=== PATIENT | female | born 1980 | race Two or more races ===

== ENCOUNTER 2025-07-20 02:07 | Emergency (ER) | payer MEDICAID, OTHER ==
[~2025-07-20] VITALS: Ht 160 cm; Wt 105.2 kg
--- NOTE | 2025-07-20 02:28 | ED.PDOC ---
History of Present Illness HPI Comments 45 Year old female came to ER for high blood pressure. Patient does have history of hypertension, with good compliance to her medications. States for the past few hours she has been having diffuse headaches with nausea. Noted that her blood pressure was elevated at home. Upon arrival of the ER blood pressure was 172/99 mm Hg. She denies any chest pains or shortness a breath Chief Complaint: High Blood Pressure Time Seen by MD: 02:28 Reviewed Notes: Nurses Notes Allergies: Coded Allergies: No Known Drug Allergy (Verified Allergy, Unknown, 07/20/25) Home Meds Active Scripts Metoprolol Tartrate (Metoprolol Tartrate) 25 Mg Tab, 1 TAB PO BID for 90 Days, #180 TAB 3 Refills Prov:ROSA BARRIOS MD 07/20/25 Information Source: Patient Mode of Arrival: Ambulatory Severity: Moderate Timing: Hours Duration: Since onset Past Medical History PAST MEDICAL HISTORY: HTN Surgical History: Denies all surgeries PROGRAM SPECIALIST History: Denies all PROGRAM SPECIALIST Hx Family History Family History: Reviewed,noncontributory to illness Social History Smoker: Non-Smoker Alcohol: Denies ETOH Use Drugs: Denies Drug Use Lives In: Home Constitutional: denies: chills, diaphoresis, fatigue, fever, malaise, sweats, weakness, others EENTM: denies: blurred vision, double vision, ear bleeding, ear discharge, ear drainage, ear pain, ear ringing, eye pain, eye redness, hearing loss, mouth pain, mouth swelling, nasal discharge, nose bleeding, nose congestion, nose pain, photophobia, tearing, throat pain, throat swelling, voice changes, others Respiratory: denies: cough, hemoptysis, orthopnea, SOB at rest, shortness of breath, SOB with excertion, stridor, wheezing, others Cardiovascular: denies: chest pain, dizzy spells, diaphoresis, Dyspnea on exertion, edema, irregular heart beat, left arm pain, lightheadedness, palpitations, PND, syncope, others Gastrointestinal: reports: nausea; denies: abdomen distended, abdominal pain, blood streaked bowels, constipated, diarrhea, dysphagia, difficulty swallowing, hematemesis, melena, poor appetite, poor fluid intake, rectal bleeding, rectal pain, vomiting, others Genitourinary: denies: abnormal vagina bleeding, burning, dyspareunia, dysuria, flank pain, frequency, hematuria, incontinence, pain, , vagina discharge, urgency, others Neurological: reports: headache; denies: dizziness, fainting, left sided nu mbness, left sided weakness, numbness, paresthesia, pre-existing deficit, right sided numbness, right sided weakness, seizure, speech problems, tingling, tremors, weakness, others Musculoskeletal: denies: back pain, gout, joint pain, joint swelling, muscle pain, muscle stiffness, neck pain, others Integumetry: denies: bruises, change in color, change in hair/nails, dryness, laceration, lesions, lumps, rash, wounds, others Allergic/Immunocompromised: denies: Difficulty Healing, Frequent Infections, Hives, Itching, others Hematologic/Lymphatic: denies: anemia, blood clots, easy bleeding, easy bruising, swollen glands, others Endocrine: denies: excessive hunger, excessive sweating, excessive thirst, excessive urination, flushing, intolerance to cold, intolerance to heat, unexpla ined weight gain, unexplained weight loss, others Psychiatric: denies: anxiety, bipolar disorder, depression, hopeless, panic disorder, schizophrenia, sleepless, suicidal, others Physical Exam General Appearance: No Apparent Distress, Normal HEENT: Normal ENT Inspection, Pharynx Normal, TMs Normal Neck: Full Range of Motion, Non-Tender, Normal, Normal Inspection Respiratory: Chest Non-Tender, Lungs Clear, No Accessory Muscle Use, No Respiratory Distress, Normal Breath Sounds Cardiovascular: No Edema, No JVD, No Murmur, No Gallop, Normal Peripheral Pulses, Regular Rate/Rhythm Breast Exam: Deferred Gastrointestinal: No Organomegaly, Non Tender, No Pulsatile Mass, Normal Bowel Sounds, Soft Genitalia: Deferred Pelvic: Deferred Rectal: Deferred Extremities: No calf tenderness, Normal capillary refill, Normal inspection, Normal range of motion, Non-tender, No pedal edema Musculoskeletal : Apperance: Normal Neurologic: Alert, care program director II-XII nml as Tested, No Motor Deficits, Normal Affect, Normal Mood, No Sensory Deficits Cerebellar Function: Normal Reflexes: Normal Skin: Dry, Normal Color, Warm Lymphatic: No Adenopathy Was a procedure done? Was a procedure done?: No Differential Dx Considerations may include: Anemia, anxiety, hypertensive urgency, headaches X-Ray, Labs, Meds, VS Vital Signs Date Time Temp Pulse Resp B/P (MAP) Pulse Ox O2 Delivery O2 Flow Rate FiO2 07/20/25 05:19 100.4 98 20 166/89 (114) 95 100.4 07/20/25 05:15 Room Air* 0 21 07/20/25 03:45 105 159/105 07/20/25 02:47 111 187/108 07/20/25 02:39 97.6 111 18 187/108 (134) 95 97.6 07/20/25 02:12 99.3 114 18 172/99 96 99.3 Lab Test 07/20/25 05:20 07/20/25 03:28 07/20/25 02:25 Range/Units Troponin I High Sensitivity Pending < 3 L < 3 L </=34 ng/L White Blood Count 11.0 H 4.4-10.8 10^3/uL Red Blood Count 4.65 4.0-5.20 10^6/uL Hemoglobin 11.5 L 12.2-16.2 g/dL Hematocrit 34.4 L 36.0-46.0 % Mean Corpuscular Volume 73.9 L 80.0-100.0 fL Mean Corpuscular Hemoglobin 24.7 L 28.0-32.0 pg Mean Corpuscular Hemoglobin Concent 33.4 32.0-36.0 g/dL Red Cell Distribution Width 19.7 H 11.8-14.3 % Platelet Count 267 140-450 10^3/uL Mean Platelet Volume 8.5 6.9-10.8 fL Neutrophils (%) (Auto) 89.5 H 37.0-80.0 % Lymphocytes (%) (Auto) 7.4 L 10.0-50.0 % Monocytes (%) (Auto) 2.6 0.0-12.0 % Eosinophils (%) (Auto) 0.0 0.0-7.0 % Basophils (%) (Auto) 0.5 0.0-2.0 % Neutrophils # (Auto) 9.8 H 1.6-8.6 10 ^3/uL Lymphocytes # (Auto) 0.8 0.4-5.4 10 ^3/uL Monocytes # (Auto) 0.3 0-1.3 10 ^3/uL Eosinophils # (Auto) 0 0-0.8 10 ^3/uL Basophils # (Auto) 0.1 0-0.2 10 ^3/uL Nucleated Red Blood Cells 0.0 % Sodium Level 139 136-145 mmol/L Potassium Level 4.2 3.5-5.1 mmol/L Chloride Level 107 98-107 mmol/L Carbon Dioxide Level 22 20-31 mmol/L Anion Gap 10 5-15 Blood Urea Nitrogen 12 9-23 mg/dL Creatinine 0.89 0.550-1.02 mg/dL Glomerular Filtration Rate Calc 81 >90 mL/min BUN/Creatinine Ratio 13.5 10.0-20.0 Serum Glucose 124 H 74-106 mg/dL Calcium Level 8.8 8.7-10.4 mg/dL Magnesium Level 1.9 1.6-2.6 mg/dL Current Medications Medications (Trade) Dose Ordered Sig/Avery Route Start Time Stop Time Status Last Admin Metoprolol Tartrate (Lopressor Tablet) 50 mg ONCE ONCE PO 07/20/25 02:45 07/20/25 02:46 DC 07/20/25 02:47 Time of 1ST Reevaluation: 02:18 Reevaluation 1ST: Unchanged Patient Education/Counseling: Diagnosis, Treatment Family Education/Counseling: No Family Present SEPSIS Sepsis Screen Date sepsis recognized/suspect: Jul 20, 2025 Time Sepsis recognized/suspect: 214 Recent Procedure: No On Antibiotic Therapy: No Respiratory Rate >20: No Heart Rate >90: No Temp<36 C (96.8 F) or >38.3 C: No SBP <90 or MAP <65 mmHG: No New Acute Mental Status Change: No Is the patient on CPAP, BIPAP,: No Physician Orders Electrocardigram (07/20/25 02:16) Troponin-I Hs (07/20/25 05:16) Acetaminophen Tab Or Cap (Tylenol Tablet (07/20/25 05:45) Ondansetron Po (Zofran Po) (07/20/25 05:45) Vital Signs Date Time Temp Pulse Resp B/P (MAP) Pulse Ox O2 Delivery O2 Flow Rate FiO2 07/20/25 05:19 100.4 98 20 166/89 (114) 95 100.4 07/20/25 05:15 Room Air* 0 21 07/20/25 03:45 105 159/105 07/20/25 02:47 111 187/108 07/20/25 02:39 97.6 111 18 187/108 (134) 95 97.6 07/20/25 02:12 99.3 114 18 172/99 96 99.3 Laboratory Tests Test 07/20/25 02:25 White Blood Count 11.0 10^3/uL (4.4-10.8) H Medications Medications Dose Ordered Sig/Avery Route Start Time Stop Time Status Last Admin Dose Admin Metoprolol Tartrate 50 mg ONCE ONCE PO 07/20/25 02:45 07/20/25 02:46 DC 07/20/25 02:47 Departure 1 Departure Time of Disposition: 04:30 Impression: Primary Impression: Hypertension Additional Impression: Hypertensive urgency Disposition: 01 HOME / SELF CARE / HOMELESS Condition: Stable e-Prescriptions Metoprolol Tartrate (Metoprolol Tartrate) 25 Mg Tab 1 TAB PO BID for 90 Days, #180 TAB 3 Refills Prov: ROSA BARRIOS MD 07/20/25 Discharged With: Self Critical Care Note Critical Care Time?: No Stability Stability form required: No Heart Score Heart Score: Heart Score Response (Comments) Value History N/A 0 EKG N/A 0 Age N/A 0 Risk Factors N/A 0 Troponin N/A 0 Total 0 I personally scribed for ROSA BARRIOS MD ([email or web address]) on 07/20/25 at 02:28. Electronically submitted by Michael Blackwell ([email or web address]). ROSA BRARIOS MD Jul 20, 2025 02:28
[2025-07-20] MEDS ORDERED: METOPROLOL TARTRATE 25 MG TAB PO ONE (02:30)
[2025-07-20 02:40] LABS: Nucleated Red Blood Cells % 0.0 %
[2025-07-20 02:43] LABS: Hematocrit 34.4 % (36.0-46.0); Hemoglobin 11.5 g/dL (12.2-16.2); Mean Corpuscular Hemoglobin 24.7 pg (28.0-32.0); Mean Corpuscular Volume 73.9 fL (80.0-100.0)
[2025-07-20] MEDS: METOPROLOL TARTRATE 50 MG TAB PO ONE (02:47)
[2025-07-20 04:05] LABS: Anion Gap 10 (5-15); Carbon Dioxide 22 mmol/L (20-31); Potassium 4.2 mmol/L (3.5-5.1); Sodium 139 mmol/L (136-145)
[2025-07-20 04:06] LABS: Calcium 8.8 mg/dL (8.7-10.4)
[2025-07-20 04:07] LABS: Chloride 107 mmol/L (98-107)
[2025-07-20 04:11] LABS: BUN/Creatinine Ratio 13.5 (10.0-20.0); Blood Urea Nitrogen 12 mg/dL (9-23); Magnesium 1.9 mg/dL (1.6-2.6)
[2025-07-20 04:58] LABS: Glucose 124 mg/dL (74-106)
[2025-07-20] MEDS ORDERED: METO25TA5 PO (05:18)
[2025-07-20 05:19] VITALS: BP 166/89; PULSE 98; RESP 20; O2SAT 95
[2025-07-20 05:40] VITALS: TEMP 100.4
[2025-07-20] MEDS: ACETAMINOPHEN 500 MG TAB or CAP PO ONE (05:40)
[2025-07-20] MEDS: ONDANSETRON ODT 4 MG TAB PO ONE (05:40)
== END 2025-07-20 05:52 | disposition home or self-care (01) ==
LOC: ER 02:07
DX: I16.0 Hypertensive urgency (principal); Z79.899 Other long term (current) drug therapy
CPT/HCPCS: 36415; 80048; 83735; 84484; 85025; 99284; Q0162